=== PATIENT | female | born 2000 | race African-American/Black ===

== ENCOUNTER 2018-03-20 17:02 | Emergency (ER) | payer OTHER ==
[~2018-03-20] VITALS: Ht 152.4 cm; Wt 40.8 kg
== END 2018-03-20 19:25 | disposition home or self-care (01) ==
LOC: ER 17:02
DX: J02.8 Acute pharyngitis due to other specified organisms (principal)

== ENCOUNTER 2019-04-25 17:02 | Emergency (ER) | payer OTHER ==
[~2019-04-25] VITALS: Ht 152.4 cm; Wt 43.5 kg
== END 2019-04-25 19:33 | disposition home or self-care (01) ==
LOC: ER 17:02
DX: B34.9 Viral infection, unspecified (principal)